=== PATIENT | female | born 1985 | race Hispanic/Latino ===

== ENCOUNTER 2017-04-03 10:40 | Emergency (ER) | payer OTHER ==
[~2017-04-03] VITALS: Ht 149.9 cm; Wt 86.4 kg
[~2017-04-03 10:40] MED LIST: AMOXICILLIN500 MG OR; BACTRIM DS1 TAB PO; CIPROFLOXACN500 MG PO; LORTAB5 PO; MACRODANTIN100 MG OR; METRONIDAZOL500 MG PO; MOTRIN200 MG PO; NO CURRENT MEDS; NO HOME MEDS; ULTRAM50 MG OR; ZITHROMAX250 MG OR; ZOFRAN ODT8 MG PO
[2017-04-03] MEDS ORDERED: PERMETHRIN5 % EX (11:55)
[2017-04-03] MEDS ORDERED: BENADRYL25 M1 PO (11:55)
[2017-04-03 11:57] VITALS: BP 135/80
== END 2017-04-03 11:55 | disposition home or self-care (01) | DRG 607 ==
LOC: ED 10:40
DX: B86 Scabies (principal); L29.9 Pruritus, unspecified

== ENCOUNTER 2018-06-06 15:52 | Emergency (ER) | payer MEDICAID ==
[~2018-06-06] VITALS: Ht 149.9 cm; Wt 100.0 kg
[~2018-06-06 15:52] MED LIST changes: +BENADRYL25 M1 PO; +PERMETHRIN5 % EX
[2018-06-06 18:05] LABS: HEMATOCRIT 41.2 % (37.0-47.0); HEMOGLOBIN 13.9 g/dl (12.0-16.0); IMMATURE GRANULOCYTES 0.5 % (0.0-5.0); MEAN CELL VOLUME 88.2 fL CALC (80.0-100.0); MEAN CORPUSCULAR HGB 29.8 pG CALC (26.0-32.0); MEAN CORPUSCULAR HGB CONC 33.7 g/L CALC (32.0-36.0); NEUT# 7.71 thou/uL (2.00-7.15); RED BLOOD COUNT 4.67 mill/uL (4.20-5.60); RED CELL DISTRI WIDTH 13.5 % (11.5-15.5)
[2018-06-06 18:28] LABS: ALBUMIN 4.3 g/dL (3.2-5.0); ALKALINE PHOSPHATASE 104 u/l (38-126); ANION GAP 12 (6-22 (CALC)); BILIRUBIN, TOTAL 0.3 mg/dL (0.0-1.4); BUN 7 mg/dL (7-17); BUN/CREATININE RATIO 10 (12-20 (CALC)); CARBON DIOXIDE 27 mmol/l (22-30); CHLORIDE 105 mmol/l (95-108); CREATININE 0.8 mg/dL (0.5-1.0); GFR > 60 ML/MIN (>=60 (CALC)); GFR FOR AFR.AMER. > 60 ML/MIN (>=60 (CALC)); POTASSIUM 3.8 mmol/l (3.5-5.1); SGOT/AST 24 u/l (14-36); SODIUM 141 mmol/l (137-146); TOTAL PROTEIN 7.7 g/dL (6.3-8.2)
[2018-06-06] MEDS ORDERED: ZITHROMAX250 MG PO (18:52)
[2018-06-06] MEDS ORDERED: TESSALON PERLE100 MG PO (18:52)
[2018-06-06] MEDS ORDERED: PROVENTIL108 MCG/AC IN (18:52)
[2018-06-06 19:36] VITALS: BP 138/87
== END 2018-06-06 19:36 | disposition home or self-care (01) ==
LOC: ED 15:52
PROVIDERS: Emergency Medicine
DX: J40 Bronchitis, not specified as acute or chronic (principal); R06.02 Shortness of breath; R05 Cough

== ENCOUNTER 2018-10-29 00:53 | Emergency (ER) | payer MEDICAID ==
[~2018-10-29] VITALS: Ht 149.9 cm; Wt 95.6 kg
[~2018-10-29 00:53] MED LIST changes: +PROVENTIL108 MCG/AC IN; +TESSALON PERLE100 MG PO; +ZITHROMAX250 MG PO
[2018-10-29] MEDS ORDERED: ULTRAM50 M1 PO (02:32)
[2018-10-29] MEDS ORDERED: FLEXERIL PO (02:32)
[2018-10-29 02:34] VITALS: BP 138/79
== END 2018-10-29 02:47 | disposition home or self-care (01) ==
LOC: ED 00:53
DX: S13.9XXA Sprain of joints and ligaments of unspecified parts of neck, initial encounter (principal); X58.XXXA Exposure to other specified factors, initial encounter

== ENCOUNTER 2019-01-03 09:04 | Emergency (ER) | payer MEDICAID ==
[~2019-01-03] VITALS: Ht 149.9 cm; Wt 100.0 kg
[~2019-01-03 09:04] MED LIST changes: +FLEXERIL PO; +ULTRAM50 M1 PO
[2019-01-03 10:08] VITALS: BP 132/66
== END 2019-01-03 10:16 | disposition home or self-care (01) ==
LOC: ED 09:04
DX: S96.912A Strain of unspecified muscle and tendon at ankle and foot level, left foot, initial encounter (principal); X58.XXXA Exposure to other specified factors, initial encounter

== ENCOUNTER 2019-10-27 12:29 | Emergency (ER) | payer MEDICAID ==
[2019-10-27 13:27] LABS: HEMATOCRIT 39.7 % (37.0-47.0); HEMOGLOBIN 13.3 g/dl (12.0-16.0); IMMATURE GRANULOCYTES 0.6 % (0.0-5.0); MEAN CORPUSCULAR HGB 28.5 pG CALC (26.0-32.0); MEAN CORPUSCULAR HGB CONC 33.5 g/dL CAL (32.0-36.0); NEUT# 7.1 thou/uL (2.00-7.15); RED BLOOD COUNT 4.67 mill/uL (4.20-5.60); RED CELL DISTRI WIDTH 13.6 % (11.5-15.5)
[2019-10-27 13:56] LABS: ALBUMIN 4.3 g/dL (3.2-5.0); ALKALINE PHOSPHATASE 123 u/l (38-126); ANION GAP 13 (6-22 (CALC)); BILIRUBIN, TOTAL 0.3 mg/dL (0.0-1.4); BUN 8 mg/dL (7-17); BUN/CREATININE RATIO 13 (12-20 (CALC)); CARBON DIOXIDE 23 mmol/l (22-30); CHLORIDE 106 mmol/l (95-108); CREATININE 0.6 mg/dL (0.5-1.0); GFR > 60 ML/MIN (>=60 (CALC)); GFR FOR AFR.AMER. > 60 ML/MIN (>=60 (CALC)); POTASSIUM 3.9 mmol/l (3.5-5.1); SODIUM 138 mmol/l (137-146); TOTAL PROTEIN 7.9 g/dL (6.3-8.2)
[2019-10-27 13:58] LABS: SGOT/AST 50 u/l (14-36)
[2019-10-27 16:09] LABS: URINE BILIRUBIN - DIPSTICK NEGATIVE (NEGATIVE); URINE BLOOD DIPSTICK NEGATIVE (NEGATIVE); URINE COLOR YELLOW; URINE GLUCOSE - DIPSTICK NEGATIVE (NEGATIVE); URINE KETONE NEGATIVE (NEGATIVE); URINE LEUK ESTERASE NEGATIVE (NEGATIVE); URINE NITRITE - DIPSTICK NEGATIVE (Negative); URINE PROTEIN - DIPSTICK NEGATIVE (NEG-TRACE); URINE SPECIFIC GRAVITY 1.015; URINE UROBILINOGEN - DIPSTICK 0.2 E.U./dL (0.2)
[2019-10-27] MEDS ORDERED: ZOFRAN4 MG/TAB PO ×2 (16:19→19:00)
[2019-10-27] MEDS ORDERED: PROAIR HFA108 MCG/AC IN ×2 (16:19→19:00)
[2019-10-27 17:00] VITALS: BP 126/87
== END 2019-10-27 17:20 | disposition home or self-care (01) ==
LOC: ED 12:29
PROVIDERS: Student in an Organized Health Care Education/Training Program
DX: B34.9 Viral infection, unspecified (principal); Z20.828 Contact with and (suspected) exposure to other viral communicable diseases

== ENCOUNTER 2020-11-26 08:49 | Emergency (ER) | payer MEDICAID ==
[~2020-11-26] VITALS: Ht 149.9 cm; Wt 84.0 kg
[~2020-11-26 08:49] MED LIST changes: +PROAIR HFA108 MCG/AC IN; +ZOFRAN4 MG/TAB PO
[2020-11-26 09:39] LABS: HEMATOCRIT 41.5 % (37.0-47.0); HEMOGLOBIN 13.8 g/dl (12.0-16.0); IMMATURE GRANULOCYTES 0.7 % (0.0-5.0); MEAN CELL VOLUME 88.1 fL CALC (80.0-100.0); MEAN CORPUSCULAR HGB 29.3 pG CALC (26.0-32.0); MEAN CORPUSCULAR HGB CONC 33.3 g/dL CAL (32.0-36.0); NEUT# 6.36 thou/uL (2.00-7.15); RED BLOOD COUNT 4.71 mill/uL (4.20-5.60); RED CELL DISTRI WIDTH 13.8 % (11.5-15.5)
[2020-11-26 09:47] LABS: URINE BILIRUBIN - DIPSTICK NEGATIVE (NEGATIVE); URINE BLOOD DIPSTICK NEGATIVE (NEGATIVE); URINE COLOR YELLOW; URINE GLUCOSE - DIPSTICK NEGATIVE (NEGATIVE); URINE KETONE NEGATIVE (NEGATIVE); URINE PH 6.5 (4.5-8.0); URINE PROTEIN - DIPSTICK NEGATIVE (NEG-TRACE); URINE UROBILINOGEN - DIPSTICK 0.2 E.U./dL (0.2)
[2020-11-26 09:48] LABS: URINE LEUK ESTERASE SMALL (NEGATIVE); URINE NITRITE - DIPSTICK NEGATIVE (Negative)
[2020-11-26 09:53] LABS: ALKALINE PHOSPHATASE 92 u/l (38-126); ANION GAP 12 (6-22 (CALC)); BILIRUBIN, TOTAL 0.3 mg/dL (0.0-1.4); BUN 8 mg/dL (7-17); BUN/CREATININE RATIO 12 (12-20 (CALC)); CARBON DIOXIDE 25 mmol/l (22-30); CHLORIDE 104 mmol/l (95-108); CREATININE 0.7 mg/dL (0.5-1.0); GFR > 60 ML/MIN (>=60 (CALC)); GFR FOR AFR.AMER. > 60 ML/MIN (>=60 (CALC)); LIPASE 92 u/l (23-300); SGOT/AST 30 u/l (14-36); SODIUM 138 mmol/l (137-146); TOTAL PROTEIN 7.5 g/dL (6.3-8.2)
[2020-11-26 09:59] LABS: URINE SQUAMOUS EPITHELIAL CELL FEW EPI/hpf (0-FEW); URINE WBC 0-2 WBC/hpf (0-5)
[2020-11-26] MEDS ORDERED: ZPAK PO (10:37)
[2020-11-26] MEDS ORDERED: CODEINE/GUAIFEN1 SOL PO (10:37)
[2020-11-26 10:55] VITALS: BP 168/105
== END 2020-11-26 10:55 | disposition home or self-care (01) ==
LOC: ED 08:49
DX: J40 Bronchitis, not specified as acute or chronic (principal); Z20.822 Contact with and (suspected) exposure to COVID-19

== ENCOUNTER 2021-10-24 11:07 | Emergency (ER) | payer MEDICAID ==
[~2021-10-24] VITALS: Ht 149.9 cm; Wt 95.0 kg
[~2021-10-24 11:07] MED LIST changes: +CODEINE/GUAIFEN1 SOL PO; +ZPAK PO
[2021-10-24 11:45] VITALS: BP 151/111
[2021-10-24 11:46] VITALS: BP 164/116
[2021-10-24 12:15] LABS: HEMATOCRIT 39.7 % (37.0-47.0); HEMOGLOBIN 13.1 g/dl (12.0-16.0); IMMATURE GRANULOCYTES 0.2 % (0.0-5.0); MEAN CELL VOLUME 89.8 fL CALC (80.0-100.0); MEAN CORPUSCULAR HGB 29.6 pG CALC (26.0-32.0); NEUT# 5.19 thou/uL (2.00-7.15); RED BLOOD COUNT 4.42 mill/uL (4.20-5.60); RED CELL DISTRI WIDTH 13.2 % (11.5-15.5)
[2021-10-24 12:24] LABS: ALBUMIN 3.9 g/dL (3.2-5.0); ALKALINE PHOSPHATASE 83 u/l (38-126); ANION GAP 11 (6-22 (CALC)); BILIRUBIN, TOTAL 0.2 mg/dL (0.0-1.4); BUN 10 mg/dL (7-17); BUN/CREATININE RATIO 15 (12-20 (CALC)); CARBON DIOXIDE 25 mmol/l (22-30); CHLORIDE 107 mmol/l (95-108); CREATININE 0.7 mg/dL (0.5-1.0); GFR FOR AFR.AMER. > 60 ML/MIN (>=60 (CALC)); GFR OTHER RACES > 60 ML/MIN (>=60 (CALC)); POTASSIUM 3.7 mmol/l (3.5-5.1); SGOT/AST 23 u/l (14-36); SODIUM 139 mmol/l (137-146); TOTAL PROTEIN 7.2 g/dL (6.3-8.2)
[2021-10-24] MEDS ORDERED: ZPAK PO (13:53)
[2021-10-24 15:00] VITALS: BP 137/86
== END 2021-10-24 15:00 | disposition home or self-care (01) ==
LOC: ED 11:07
PROVIDERS: Family Medicine
DX: U07.1 COVID-19 (principal); R05.9 Cough, unspecified

== ENCOUNTER 2022-01-06 09:08 | Emergency (ER) | payer MEDICAID ==
[~2022-01-06] VITALS: Ht 149.9 cm; Wt 95.9 kg
[2022-01-06] VITALS (9 sets, daily range): BP systolic 108–151; BP diastolic 71–104
[2022-01-06 09:44] LABS: HEMATOCRIT 39.4 % (37.0-47.0); HEMOGLOBIN 13.2 g/dl (12.0-16.0); IMMATURE GRANULOCYTES 0.3 % (0.0-5.0); MEAN CELL VOLUME 89.3 fL CALC (80.0-100.0); MEAN CORPUSCULAR HGB 29.9 pG CALC (26.0-32.0); MEAN CORPUSCULAR HGB CONC 33.5 g/dL CAL (32.0-36.0); NEUT# 4.85 thou/uL (2.00-7.15); RED BLOOD COUNT 4.41 mill/uL (4.20-5.60)
[2022-01-06 09:45] LABS: URINE BILIRUBIN - DIPSTICK NEGATIVE (NEGATIVE); URINE BLOOD DIPSTICK MODERATE (NEGATIVE); URINE COLOR YELLOW; URINE GLUCOSE - DIPSTICK NEGATIVE (NEGATIVE); URINE KETONE NEGATIVE (NEGATIVE); URINE LEUK ESTERASE NEGATIVE (NEGATIVE); URINE PH 5.5 (4.5-8.0); URINE PROTEIN - DIPSTICK NEGATIVE (NEG-TRACE); URINE SPECIFIC GRAVITY <=1.005; URINE UROBILINOGEN - DIPSTICK 0.2 E.U./dL (0.2)
[2022-01-06 09:49] LABS: URINE NITRITE - DIPSTICK NEGATIVE (Negative)
[2022-01-06] MEDS ORDERED: FIORICET PO (09:54)
[2022-01-06 09:58] LABS: URINE RBC 0-2 RBC/hpf (0-5); URINE SQUAMOUS EPITHELIAL CELL FEW EPI/hpf (0-FEW); URINE WBC 0-2 WBC/hpf (0-5)
[2022-01-06 09:59] LABS: ALKALINE PHOSPHATASE 98 u/l (38-126); ANION GAP 10 (6-22 (CALC)); BILIRUBIN, TOTAL 0.3 mg/dL (0.0-1.4); BUN 9 mg/dL (7-17); BUN/CREATININE RATIO 12 (12-20 (CALC)); CARBON DIOXIDE 28 mmol/l (22-30); CHLORIDE 107 mmol/l (95-108); CREATININE 0.8 mg/dL (0.5-1.0); ETHYL ALCOHOL 0 mg/dl (0-30); GFR FOR AFR.AMER. > 60 ML/MIN (>=60 (CALC)); GFR OTHER RACES > 60 ML/MIN (>=60 (CALC)); POTASSIUM 3.9 mmol/l (3.5-5.1); SGOT/AST 28 u/l (14-36); SODIUM 141 mmol/l (137-146); TOTAL PROTEIN 7.2 g/dL (6.3-8.2)
[2022-01-06] MEDS ORDERED: CEPHALEXIN500 MG PO (18:04)
[2022-01-11] MEDS ORDERED: METOPROL TAR25 MG PO (14:01)
[2022-01-14] MEDS ORDERED: TOPROL XL25 MG PO (11:37)
[2022-01-14] MEDS ORDERED: OMEPRAZOLE DR40 MG PO (11:40)
[2022-01-14] MEDS ORDERED: PREDNISONE50 MG PO (11:40)
== END 2022-01-06 12:48 | disposition home or self-care (01) ==
LOC: ED 09:08
PROVIDERS: Family Medicine
DX: R51.9 Headache, unspecified (principal); G93.89 Other specified disorders of brain; E66.9 Obesity, unspecified; Z20.822 Contact with and (suspected) exposure to COVID-19

== ENCOUNTER → 2022-03-12 | Emergency (ER) | payer MEDICAID ==
[~2022-03-12] VITALS: Ht 149.9 cm; Wt 95.9 kg
[2022-03-12] VITALS (7 sets, daily range): BP systolic 97–147; BP diastolic 51–100
[~2022-03-12] MED LIST changes: +CEPHALEXIN500 MG PO; +FIORICET PO; +GABAPENTIN100 MG PO; +METOPROL TAR25 MG PO; +OMEPRAZOLE DR40 MG PO; +PREDNISONE50 MG PO; +TOPROL XL25 MG PO; +TORADOL PO
[2022-03-12 12:04] LABS: HEMATOCRIT 39.1 % (37.0-47.0); HEMOGLOBIN 13.2 g/dl (12.0-16.0); IMMATURE GRANULOCYTES 0.7 % (0.0-5.0); MEAN CELL VOLUME 89.1 fL CALC (80.0-100.0); MEAN CORPUSCULAR HGB 30.1 pG CALC (26.0-32.0); MEAN CORPUSCULAR HGB CONC 33.8 g/dL CAL (32.0-36.0); NEUT# 9.52 thou/uL (2.00-7.15); RED BLOOD COUNT 4.39 mill/uL (4.20-5.60)
[2022-03-12 12:21] LABS: ALBUMIN 4.4 g/dL (3.2-5.0); ALKALINE PHOSPHATASE 127 u/l (38-126); ANION GAP 14 (6-22 (CALC)); BILIRUBIN, TOTAL 0.3 mg/dL (0.0-1.4); BUN 8 mg/dL (7-17); BUN/CREATININE RATIO 12 (12-20 (CALC)); CARBON DIOXIDE 25 mmol/l (22-30); CHLORIDE 105 mmol/l (95-108); CREATININE 0.7 mg/dL (0.5-1.0); GFR FOR AFR.AMER. > 60 ML/MIN (>=60 (CALC)); GFR OTHER RACES > 60 ML/MIN (>=60 (CALC)); SGOT/AST 35 u/l (14-36); SODIUM 140 mmol/l (137-146); TOTAL PROTEIN 7.6 g/dL (6.3-8.2)
[2022-03-12 14:33] LABS: URINE BILIRUBIN - DIPSTICK NEGATIVE (NEGATIVE); URINE BLOOD DIPSTICK MODERATE (NEGATIVE); URINE COLOR YELLOW; URINE GLUCOSE - DIPSTICK NEGATIVE (NEGATIVE); URINE KETONE TRACE mg/dL (NEGATIVE); URINE LEUK ESTERASE NEGATIVE (NEGATIVE); URINE PROTEIN - DIPSTICK NEGATIVE (NEG-TRACE); URINE SPECIFIC GRAVITY <=1.005; URINE UROBILINOGEN - DIPSTICK 0.2 E.U./dL (0.2)
[2022-03-12 14:35] LABS: URINE NITRITE - DIPSTICK NEGATIVE (Negative)
[2022-03-12 14:41] LABS: URINE SQUAMOUS EPITHELIAL CELL FEW EPI/hpf (0-FEW)
== END | disposition home or self-care (01) ==
LOC: ED 11:29
PROVIDERS: Family Medicine
DX: G43.909 Migraine, unspecified, not intractable, without status migrainosus (principal); G37.9 Demyelinating disease of central nervous system, unspecified; I10 Essential (primary) hypertension; Z20.822 Contact with and (suspected) exposure to COVID-19
CPT/HCPCS: Q9967

== ENCOUNTER 2022-05-16 10:06 | Emergency (ER) | payer MEDICAID ==
[~2022-05-16] VITALS: Ht 149.9 cm; Wt 96.0 kg
[2022-05-16] MEDS ORDERED: PERMETHRIN5 % EX (13:10)
[2022-05-16] MEDS ORDERED: MUPIROCIN2 % EX (13:10)
[2022-05-16 13:49] VITALS: BP 1630/78
== END 2022-05-16 13:52 | disposition home or self-care (01) ==
LOC: ED 10:06
DX: B86 Scabies (principal); I10 Essential (primary) hypertension